=== PATIENT | female | born 2000 | race Caucasian/White ===

== ENCOUNTER → 2021-04-21 15:55 | Outpatient (CLI) | payer OTHER, MEDICAID, SELFPAY ==
--- NOTE | 2021-04-21 15:58 | DI.RAD.S_ITS ---
PROCEDURE: XR KNEE LT 3V INDICATIONS: snowboarding fall TECHNIQUE: 3 views of the knee were acquired. COMPARISON: [facility], , KNEE 3V LEFT, 06/01/2013, 11:03. FINDINGS: Bones: No fractures or dislocations. No suspicious bony lesions. Surgical anchors are noted traversing the patella. Soft tissues: Mild joint effusion. No suspicious soft tissue calcifications. IMPRESSION: Mild effusion. No visualized acute fracture or dislocation. However, if clinical concern and/or pain persist, short interval imaging followup in 7-10 days is recommended, as occult injury cannot be definitively excluded. Dictated by: Gretta Cason M.D. on 04/21/2021 at 16:13 Approved by: Gretta Cason M.D. on 04/21/2021 at 16:13
== END ==
PROVIDERS: Family Provider Pediatrics; PCP Pediatrics; Referring Provider Physician Assistant; Visit Provider Physician Assistant
DX: M25.462 Effusion, left knee (principal)
CPT/HCPCS: 73562